=== PATIENT | female | born 1965 ===

== ENCOUNTER 2017-10-29 19:29 | Emergency (ER) | payer SELFPAY ==
[2017-10-29 19:43] VITALS: PULSE 90; RESP 18; TEMP 97.9; O2SAT 100
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
[2017-10-29 20:50] VITALS: BP 130/81
== END 2017-10-29 20:30 | disposition home or self-care (01) ==
LOC: ED 19:29
DX: S16.1XXA Strain of muscle, fascia and tendon at neck level, initial encounter (principal); V49.9XXA Car occupant (driver) (passenger) injured in unspecified traffic accident, initial encounter; I10 Essential (primary) hypertension